=== PATIENT | female | born 1945 | race Caucasian/White ===

== ENCOUNTER 2020-09-21 16:54 | Emergency (ER) | payer MEDICARE ==
[~2020-09-21] VITALS: Ht 162.6 cm; Wt 99.8 kg
[2020-09-21] MEDS ORDERED: CASIRIVIMAB/IMDEVIMAB 600 MG in SODIUM CHLORIDE 0.9% 250ML 250 ML IV ONE (20:15)
[2020-09-21 22:12] VITALS: BP 129/74
== END 2020-09-21 22:20 | disposition home or self-care (01) ==
LOC: ER 17:39
DX: U07.1 COVID-19 (principal); R05 Cough; I10 Essential (primary) hypertension; I48.91 Unspecified atrial fibrillation; E03.9 Hypothyroidism, unspecified
CPT/HCPCS: 99283; J7050; U0002